=== PATIENT | female | born 1975 | race Caucasian/White ===

== ENCOUNTER → 2016-11-05 | Outpatient (CLI) | payer OTHER ==
[~2016-11-05] MED LIST: LEVO.15 PO; LORTA10 PO
[2016-11-05 10:30] LABS: HEMATOCRIT 41.9 % (35.0-46.0); MEAN CELL VOLUME 80.2 FL (80.0-100.0); MEAN CORPUSCULAR HEMOGLOBIN 25.8 PG (27.0-34.0); MEAN CORPUSCULAR HGB CONC 32.2 % (32.0-36.0); PLATELET COUNT 315 TH/MM3 (150-450); RED BLOOD COUNT 5.22 MIL/MM3 (4.00-5.30); RED CELL DISTRIBUTION WIDTH 14.7 % (11.6-17.2); REVIEW FLAG FINAL; WHITE BLOOD COUNT 5.7 TH/MM3 (4.0-11.0)
[2016-11-05 10:55] LABS: ANION GAP 8 MEQ/L (5-15); AST (GOT) 26 U/L (15-37); BICARBONATE 28.4 MEQ/L (21.0-32.0); BLOOD UREA NITROGEN 10 MG/DL (7-18); CHLORIDE 101 MEQ/L (98-107); GLOMERULAR FILTRATION RATE 91 ML/MIN (>89); GLUCOSE,FASTING 85 MG/DL (74-99); POTASSIUM 3.8 MEQ/L (3.5-5.1); SODIUM (NA) 137 MEQ/L (136-145)
[2016-11-05 11:06] LABS: ALKALINE PHOSPHATASE 115 U/L (45-117); ALT (GPT) 47 U/L (10-53); HDL CHOLESTEROL 37.9 MG/DL (40.0-60.0); LDL CHOLESTEROL 121 MG/DL (0-99); TOTAL BILIRUBIN ADULT 0.4 MG/DL (0.2-1.0)
== END ==
LOC: PLAB 08:46
PROVIDERS: ATTEND Family Medicine
DX: E03.9 Hypothyroidism, unspecified (principal); E78.5 Hyperlipidemia, unspecified; M54.2 Cervicalgia; G89.29 Other chronic pain
CPT/HCPCS: 36415; 80053; 80061; 84443; 85027

== ENCOUNTER → 2017-01-05 | Outpatient (CLI) | payer OTHER ==
[2017-01-05 16:46] LABS: HDL CHOLESTEROL 52.4 MG/DL (40.0-60.0)
== END ==
LOC: PLAB 12:43
PROVIDERS: ATTEND Family Medicine
DX: E03.9 Hypothyroidism, unspecified (principal); E78.5 Hyperlipidemia, unspecified
CPT/HCPCS: 36415; 80061; 84443

== ENCOUNTER 2017-04-04 12:42 | Emergency (ER) | payer OTHER ==
[~2017-04-04] VITALS: Ht 165.1 cm; Wt 79.3 kg
[2017-04-04 12:46] VITALS: BP 128/90; PULSE 89; RESP 18; TEMP 98.7; O2SAT 100
[2017-04-04] MEDS ORDERED: METH10TA PO (13:05)
[2017-04-04] MEDS ORDERED: LEVO.15 PO (13:05)
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
[2017-04-04] MEDS ORDERED: ONDANSETRON HCL 4 MG/2 ML VIAL IV PUSH ONE (13:15)
[2017-04-04] MEDS ORDERED: DICYCLOMINE HCL 20 MG/2 ML VIAL IM ONE (13:15)
[2017-04-04] MEDS ORDERED: SODIUM CHLORID 0.9% 500 ML INJ 500 ML IV ONE (13:15)
[2017-04-04 13:50] VITALS: BP 112/67; PULSE 65; RESP 20; O2SAT 98
[2017-04-04] MEDS ORDERED: ALPR.25 PO (14:26)
[2017-04-04] MEDS ORDERED: LEVS0.123 PO (14:26)
[2017-04-04] MEDS ORDERED: PROM25TA10 PO (14:26)
[2017-04-04 14:36] VITALS: BP 124/70; PULSE 70; RESP 18; O2SAT 98
== END 2017-04-04 14:43 | disposition home or self-care (01) ==
LOC: PHED 12:42
DX: R10.9 Unspecified abdominal pain (principal); R11.0 Nausea; E07.9 Disorder of thyroid, unspecified; Z87.19 Personal history of other diseases of the digestive system; Z87.39 Personal history of other diseases of the musculoskeletal system and connective tissue
CPT/HCPCS: 96361; 96372; 96374; 99284; J0500; J2405; J7040

== ENCOUNTER → 2017-08-05 | Outpatient (CLI) | payer OTHER ==
[~2017-08-05] MED LIST changes: +ALPR.25 PO; +LEVS0.123 PO; -LORTA10 PO; +METH10TA PO; +PROM25TA10 PO
[2017-08-05 18:03] LABS: CHOLESTEROL/ HDL RATIO 4.54 RATIO; HDL CHOLESTEROL 43.6 MG/DL (40.0-60.0)
== END ==
LOC: PLAB 12:15
PROVIDERS: ATTEND Family Medicine
DX: E03.9 Hypothyroidism, unspecified (principal); E78.5 Hyperlipidemia, unspecified; M54.2 Cervicalgia; G89.29 Other chronic pain
CPT/HCPCS: 36415; 80061; 84443; 84450; 84460

== ENCOUNTER → 2017-11-26 | Outpatient (CLI) | payer OTHER ==
[2017-11-26 10:27] LABS: CHOLESTEROL/ HDL RATIO 3.69 RATIO; HDL CHOLESTEROL 47.1 MG/DL (40.0-60.0)
== END ==
LOC: PLAB 08:25
PROVIDERS: ATTEND Family Medicine
DX: E03.9 Hypothyroidism, unspecified (principal); E78.4 Other hyperlipidemia
CPT/HCPCS: 36415; 80061; 84443